=== PATIENT | female | born 1960 | race Caucasian/White ===

== ENCOUNTER 2021-02-04 21:32 | Inpatient (IN) | payer OTHER ==
[~2021-02-04] VITALS: Ht 154.9 cm; Wt 61.9 kg
[~2021-02-04 21:32] MED LIST: BENADRYL25 M1 PO; CARAFATE1 GM PO; ONDANSETRON ODT4 MG PO/SL; PROMETHEGA12.5 MG/SU PR; PROTONIX 40MG T40 MG PO; ZOLOFT 25MG TAB25 MG PO
[2021-02-04 23:37] LABS: BASOPHIL 0.3 % (0-2); EOSINOPHIL 0.1 % (0-5); HCT 44.7 % (37.0-47.0); HGB 15.5 g/dl (12.5-16.0); LYMPHOCYTE 5.4 % (15-48); MCH 30.2 pg (25.0-31.0); MCHC 34.7 g/dL (32.0-36.0); MPV 11.6 fL (6.0-9.5); NRBC 0; PLT 276 K/uL (150-400); RBC 5.14 M/uL (4.20-5.40); RDW 13.2 % (11.5-14.0)
[2021-02-04 23:38] LABS: NEUTROPHIL 83.3 % (41-80)
[2021-02-04 23:39] LABS: WBC 24.4 K/uL (4.0-10.5)
[2021-02-04 23:42] LABS: ALBUMIN 3.2 g/dL (3.4-5.0); BILIRUBIN - TOTAL 1.2 mg/dL (0.2-1.0); BUN/CREAT RATIO (CALC) 22.2 RATIO; CREATININE 0.9 mg/dL (0.51-0.95); GLOBULIN (CALCULATION) 3.7 g/dL; POTASSIUM 3.6 mmol/L (3.5-5.1); TOTAL PROTEIN 6.9 g/dL (6.4-8.2)
[2021-02-04 23:48] LABS: LACTIC ACID 2.3 mmol/L (0.4-1.9)
[2021-02-05 04:18] LABS: BILIRUBIN NEGATIVE (NEGATIVE); BLOOD NEGATIVE Ery/uL (NEGATIVE); CLARITY CLEAR (CLEAR); COLOR YELLOW (YELLOW); GLUCOSE (U) NORMAL (NORMAL); LEUKOCYTES NEGATIVE Leu/uL (NEGATIVE); NITRITE NEGATIVE (NEGATIVE); PROTEIN 1+ mg/dL (NEGATIVE); UROBILINOGEN 0.2 mg/dL (0.2-1.0)
[2021-02-05 04:36] LABS: BACTERIA 1+; URINARY WBC RARE
[2021-02-05 05:10] LABS: ALBUMIN 2.6 g/dL (3.4-5.0); BUN/CREAT RATIO (CALC) 22.7 RATIO; CREATININE 0.75 mg/dL (0.51-0.95); GLOBULIN (CALCULATION) 3.7 g/dL; POTASSIUM 3.1 mmol/L (3.5-5.1); TOTAL PROTEIN 6.3 g/dL (6.4-8.2)
[2021-02-06 06:03] LABS: BASOPHIL 0.8 % (0-2); EOSINOPHIL 0.4 % (0-5); HCT 37.3 % (37.0-47.0); HGB 12.6 g/dl (12.5-16.0); MCH 30.1 pg (25.0-31.0); MCHC 33.8 g/dL (32.0-36.0); MCV 89.2 fL (78.0-100.0); MONOCYTE 8.3 % (0-12); MPV 11.1 fL (6.0-9.5); NRBC 0; PLT 244 K/uL (150-400); RBC 4.18 M/uL (4.20-5.40); RDW 13.7 % (11.5-14.0); WBC 19.7 K/uL (4.0-10.5)
[2021-02-06 06:51] LABS: BUN/CREAT RATIO (CALC) 26.8 RATIO; CREATININE 0.56 mg/dL (0.51-0.95)
[2021-02-07 06:33] LABS: BASOPHIL 0.2 % (0-2); EOSINOPHIL 0.9 % (0-5); HCT 38.4 % (37.0-47.0); HGB 12.8 g/dl (12.5-16.0); LYMPHOCYTE 13.8 % (15-48); MCH 29.8 pg (25.0-31.0); MCHC 33.3 g/dL (32.0-36.0); MCV 89.3 fL (78.0-100.0); MONOCYTE 8.5 % (0-12); NEUTROPHIL 71.3 % (41-80); NRBC 0; PLT 271 K/uL (150-400); RDW 13.6 % (11.5-14.0)
[2021-02-07 06:43] LABS: BUN/CREAT RATIO (CALC) 16.1 RATIO; CREATININE 0.56 mg/dL (0.51-0.95); POTASSIUM 4.2 mmol/L (3.5-5.1)
[2021-02-07] MEDS ORDERED: VANCOCIN HCL250 MG PO (12:03)
== END 2021-02-07 12:48 | disposition home or self-care (01) | DRG 372 ==
LOC: FER 21:32 → FMS 02-05 02:04
PROVIDERS: Emergency Medicine Emergency Medical Services; Nurse Practitioner; ADMIT Family Medicine
PROC: 8E0ZXY6 Isolation (ICD-10-PCS; principal; 2021-02-05)
DX: A04.72 Enterocolitis due to Clostridium difficile, not specified as recurrent (principal); N17.9 Acute kidney failure, unspecified; E87.2 Acidosis; Z20.822 Contact with and (suspected) exposure to COVID-19; E87.6 Hypokalemia; E86.0 Dehydration; R73.9 Hyperglycemia, unspecified; K21.9 Gastro-esophageal reflux disease without esophagitis; F41.9 Anxiety disorder, unspecified; F32.A Depression, unspecified; Z90.49 Acquired absence of other specified parts of digestive tract; Z88.5 Allergy status to narcotic agent; Z79.899 Other long term (current) drug therapy; Z90.89 Acquired absence of other organs
CPT/HCPCS: 36415; 80048; 80053; 81001; 83036; 83605; 83690; 84145; 85025; 87045; 87046; 87205; 87324; 87449; 94010; J1650; J2270; J2405; J2543; J7030; J7120; Q9967; U0002